=== PATIENT | female | born 1985 | race African-American/Black ===

== ENCOUNTER 2016-10-27 12:25 | Emergency (ER) | payer MEDICAID ==
[~2016-10-27] VITALS: Ht 154.9 cm; Wt 64.0 kg
[2016-10-27] MEDS ORDERED: CETI10TA6 PO (12:45)
[2016-10-27] MEDS ORDERED: KETOROLAC 30MG/ML VIAL IV STA (13:41)
[2016-10-27] MEDS ORDERED: SODIUM CHLORIDE 0.9% 1,000 ML IV ONE (13:41)
[2016-10-27 14:17] LABS: CHLORIDE 107 mEq/L (98-107); INDEX HEMOLYSI 1 (1-3); INDEX ICTERIC 1 (1-4); INDEX LIPEMIC 1 (1-3); INR 1.1; PROTHROMBIN TIME 11.1 sec
[2016-10-27 14:17] LABS: CLARITY URINE CLEAR (CLEAR); COLOR URINE DARK YELLOW (YELLOW); GLUCOSE URINE NEGATIVE (NEGATIVE); KETONES URINE 1+ (NEGATIVE); LEUKOCYTE ESTERASE URINE NEGATIVE (NEGATIVE); NITRITE URINE NEGATIVE (NEGATIVE); OCCULT BLOOD URINE NEGATIVE (NEGATIVE); PH URINE 5.5 (4.5-8.0); PROTEIN URINE NEGATIVE (NEGATIVE); SPECIFIC GRAVITY URINE 1.022 (1.005-1.030)
[2016-10-27 14:18] LABS: BASOPHILS % 0.8 % (0.0-2.0); EOSINOPHILS % 1.6 % (0.0-5.0); HEMATOCRIT. 39.1 % (36.0-48.0); HEMOGLOBIN. 13.2 g/dL (12.0-16.0); LYMPHOCYTES % 28.6 % (20.0-50.0); MEAN CORPUSCULAR HEMOGLOBIN 29.3 pg (28.0-32.0); MEAN CORPUSCULAR HGB CONC 33.7 g/dL (31.0-37.0); MEAN CORPUSCULAR VOLUME 86.8 fL (81.0-99.0); MEAN PLATELET VOLUME 9.1 fl (7.4-10.4); MONOCYTES % 9.2 % (2.0-8.0); NEUTROPHILS % 59.8 % (40.0-76.0); PLATELET 267 x1000/uL (130-400); RED CELL DISTRIBUTION WIDTH 13.8 % (11.6-14.6); WHITE BLOOD COUNT 7.9 x1000/uL (4.5-11.0)
[2016-10-27 14:22] LABS: ALANINE AMINOTRANSFERASE 31 IU/L (13-61); ALBUMIN 3.9 g/dL (3.4-5.0); ANION GAP 10; CALCIUM 8.6 mg/dL (8.5-10.1); CARBON DIOXIDE 28 mEq/L (21-32); LIPASE 81 IU/L (73-393); UREA NITROGEN BLOOD 5 mg/dL (7-21); eGFR > 60 mL/min (>60)
[2016-10-27 16:58] VITALS: BP 125/85
== END 2016-10-27 17:00 | disposition home or self-care (01) ==
LOC: ER 13:00
DX: R10.9 Unspecified abdominal pain (principal); M54.5 Low back pain; F12.10 Cannabis abuse, uncomplicated; Z79.899 Other long term (current) drug therapy; Z98.51 Tubal ligation status
CPT/HCPCS: 36415; 74176; 80053; 81003; 81025; 83690; 85025; 85610; 96361; 96374; 99284; J1885; J7030; Z7610

== ENCOUNTER 2019-10-28 03:00 | Emergency (ER) | payer MEDICAID ==
[~2019-10-28] VITALS: Ht 154.9 cm; Wt 67.0 kg
[~2019-10-28 03:00] MED LIST: CETI10TA6 PO
[2019-10-28] MEDS ORDERED: HYDROCODONE/ACETAMINOPHEN 5/325MG TABLET PO ONE (03:45)
[2019-10-28] MEDS ORDERED: CEPHALEXIN 250MG CAPSULE PO ONE (03:45)
[2019-10-28 03:59] VITALS: BP 129/75
== END 2019-10-28 03:59 | disposition home or self-care (01) ==
LOC: ER 03:00
DX: L03.011 Cellulitis of right finger (principal)
CPT/HCPCS: 99283

== ENCOUNTER 2019-10-29 04:15 | Emergency (ER) | payer MEDICAID, OTHER ==
[~2019-10-29] VITALS: Ht 165.1 cm; Wt 70.0 kg
[2019-10-29] MEDS ORDERED: IBUPROFEN 600MG TABLET PO ONE (05:30)
[2019-10-29] MEDS ORDERED: LIDOCAINE HCL 1% 20ML VIAL (Pyxis) INJ INFIL ONE (07:15)
[2019-10-29] MEDS ORDERED: HYDROCODONE/ACETAMINOPHEN 5/325MG TABLET PO ONE (07:15)
[2019-10-29] MEDS ORDERED: BACITRACIN ZINC OINT UDPKT TOP ONE (07:15)
[2019-10-29] MEDS ORDERED: AMOXICILLIN/POTASSIUM CLAVULANATE 875/125MG TAB PO ONE (07:45)
[2019-10-29] MEDS ORDERED: ONDANSETRON 4MG ODT PO ONE (07:45)
[2019-10-29] MEDS ORDERED: SULFAMETHOXAZOLE/TRIMETHOPRIM 800/160MG TABLET PO ONE (07:45)
[2019-10-29 10:00] VITALS: BP 126/80
== END 2019-10-29 10:30 | disposition home or self-care (01) ==
LOC: ER 04:15
DX: L03.011 Cellulitis of right finger (principal); F17.290 Nicotine dependence, other tobacco product, uncomplicated; Z98.51 Tubal ligation status
CPT/HCPCS: 10060; 99285; J3490; Q0162

== ENCOUNTER 2021-12-03 17:13 | Emergency (ER) | payer MEDICAID, OTHER ==
[~2021-12-03] VITALS: Ht 167.6 cm; Wt 75.0 kg
[2021-12-03] MEDS ORDERED: LIDOCAINE HCL/PF 1% 10 MG/ML 5ML VIAL INFIL ONE (18:00)
[2021-12-03] MEDS ORDERED: TETANUS, DIPHTHERIA, PERTUSSIS VAC/PF 0.5ML (>10YR OLD) IM ONE (18:00)
[2021-12-03] MEDS ORDERED: BACITRACIN ZINC OINT UDPKT TOP ONE (18:00)
[2021-12-03] MEDS ORDERED: MORPHINE SULFATE 4 MG/ML CPJ (NOT FOR IM USE) IV ONE (19:00)
[2021-12-03] MEDS ORDERED: LIDOCAINE HCL 1% 10 MG/ML 10ML VIAL IJ NR (19:15)
[2021-12-03] MEDS ORDERED: LIDOCAINE HCL/EPINEPHRINE 1%-EPI 1:100,000 50 ML VIAL INFIL ONE (21:30)
[2021-12-03] MEDS ORDERED: LIDOCAINE HCL/EPINEPHRINE 1%-EPI 1:100,000 10 ML VIAL IJ SCH (21:45)
[2021-12-03] MEDS ORDERED: KETOROLAC 15MG/ML VIAL IV ONE (21:45)
[2021-12-03] MEDS ORDERED: HYDR-4001 MT (23:10)
[2021-12-03] MEDS ORDERED: IBUP-2028 MT (23:10)
[2021-12-04 00:20] VITALS: BP 138/72
== END 2021-12-04 00:38 | disposition home or self-care (01) ==
LOC: ER 17:13
DX: S86.021A Laceration of right Achilles tendon, initial encounter (principal); W22.09XA Striking against other stationary object, initial encounter; Y93.01 Activity, walking, marching and hiking; Y92.488 Other paved roadways as the place of occurrence of the external cause
CPT/HCPCS: 12002; 73610; 73630; 81025; 90471; 90715; 96374; 96375; 99285; J1885; J2270; J3490; Z7610